=== PATIENT | female | born 1970 | race African-American/Black ===

== ENCOUNTER 2016-07-10 23:45 | Emergency (ER) | payer OTHER ==
[~2016-07-10] VITALS: Ht 177.8 cm; Wt 136.1 kg
--- NOTE | ~2016-07-10 | EKG ---
[address] [address] [id number] [place] [address] ELECTROCARDIOGRAM REPORT Name: TELLO MCKEE Room #: DEP RAYSA Adams#: [id number] Admission: 07/10/16 Attend Phys: Discharge: 07/11/16 Date of : 72 Report #: [id number] THIS REPORT FOR: //name// [facility] ED Test Date: 2016-07-11 Test Time: 00:05:55 Pat Name: TELLO MCKEE Department: Room: Gender: F [employer]: PORFIRIO : 1970 Requested By: Magan Camacho Order Number: [id number] MD: Duke Doyle Measurements Intervals Bath Rate: 72 P: 56 MA: 193 QRS: 39 QRSD: 107 T: 21 QT: 395 QTc: 433 Interpretive Statements Sinus rhythm ST elev, probable normal early repol pattern Baseline wander in lead(s) V2 No previous ECG available for comparison Electronically Signed On 07-11-2016 13:49:24 ENGLISH TUTOR by Duke Doyle [email or web address] <ELECTRONICALLY SIGNED> By: Duke Doyle MD, [facility] 07/11/16 1349 0005 0005 Duke Doyle MD, FACC /EPI
[2016-07-11 00:17] LABS: ABSOLUTE NEUTROPHILS 6.2 thou/uL (1.4-8.2); EOSINOPHILS 0.9 % (0.0-3.0); HEMATOCRIT 42.6 % (37.0-47.0); HEMOGLOBIN 14.1 gm/dL (12.0-15.0); LYMPHOCYTES 34.5 % (24.0-44.0); MCH 29.7 pg (26.0-34.0); MCHC 33.1 % (28.0-37.0); MCV 89.9 fL (80.0-100.0); MONOCYTES 6.9 % (1.0-8.0); PLATELET COUNT 283 thou/uL (150-400); POLYS 56.7 % (36.0-66.0); RBC 4.74 mil/uL (4.20-5.00); RDW 13.6 % (10.5-14.5)
[2016-07-11 00:27] LABS: MANUAL DIFF NO
[2016-07-11 00:28] LABS: PROTIME 10.2 Seconds (9.3-11.4)
[2016-07-11 00:34] LABS: ANION GAP 11 mmol/L (7-16); BUN 14 mg/dL (7-18); CALCIUM 9.4 mg/dL (8.5-10.1); CHLORIDE 106 mmol/L (98-107); CO2 26 mmol/L (21-32); CREATININE 0.9 mg/dL (0.6-1.3); GLUCOSE 92 mg/dL (70-99); POTASSIUM 3.7 mmol/L (3.5-5.1); SODIUM 143 mmol/L (136-145)
[2016-07-11 00:41] LABS: TROPONIN-I < 0.04 ng/mL (<0.04-0.07)
[2016-07-11 00:44] LABS: AMP/METHAMP Negative (Negative); BARBITURATES Negative (Negative); BENZODIAZEPINES Negative (Negative); COCAINE Negative (Negative); METHADONE Negative (Negative); OPIATES Negative (Negative); PCP Negative (Negative); THC POSITIVE (Negative)
[2016-07-11 02:37] VITALS: BP 111/62
== END 2016-07-11 02:40 | disposition home or self-care (01) ==
LOC: ER 23:45
PROVIDERS: Physician Assistant
DX: R20.2 Paresthesia of skin (principal); H53.19 Other subjective visual disturbances; Z88.1 Allergy status to other antibiotic agents; F15.10 Other stimulant abuse, uncomplicated